=== PATIENT | female | born 1970 | race Caucasian/White ===

== ENCOUNTER 2022-08-28 10:01 | Observation (INO) | payer BC ==
[2022-08-25 15:51] LABS: BASOPHILS % 0.4 % (0.0-1.0); EOSINOPHILS # (AUTO) 0.1 (0.0-0.4); EOSINOPHILS % 1.3 % (0.0-6.0); HEMATOCRIT 40.4 % (34.2-44.1); HEMOGLOBIN 12.4 g/dL (12.0-16.0); LYMPHOCYTES # (AUTO) 2.7 (1.0-3.2); LYMPHOCYTES % 28.2 % (18.0-39.1); MEAN CORPUSCULAR HGB CONC 30.7 g/dL (31-35); MEAN CORPUSCULAR VOLUME 94.4 fL (81-99); MONOCYTES # (AUTO) 0.6 (0.2-0.8); MONOCYTES % 6.4 % (4.4-11.3); NEUTROPHILS % 63.2 % (38.7-80.0); PLATELET COUNT 354 x10e3/uL (140-360); RED BLOOD COUNT 4.28 x10e6/uL (3.6-5.1)
[2022-08-25 15:57] LABS: COLOR,URINE YELLOW (YELLOW)
[2022-08-25 15:58] LABS: CLARITY,URINE SL CLOUDY (CLEAR); KETONES,URINE NEGATIVE (NEGATIVE); LEUKOCYTE ESTERASE ,URINE TRACE (NEGATIVE); NITRITE,URINE POSITIVE (NEGATIVE); PROTEIN,URINE DIPSTICK NEGATIVE (NEGATIVE); URINE UROBILINOGEN 1 mg/dL (0.2 - 1)
[~2022-08-28] VITALS: Ht 157.5 cm; Wt 72.1 kg
[~2022-08-28 10:01] MED LIST: LEVOTHYROXINE50 MCG PO
[2022-08-28] MEDS ORDERED: BUPIVACAINE 0.25% 30ML SDV ONE (12:07)
[2022-08-28] MEDS ORDERED: LIDOCAINE HCL/EPINEPHRINE/PF 10 ML VIAL ONE (12:08)
[2022-08-28] MEDS ORDERED: FENTANYL CITRATE/PF 100MCG/2 ML INJ ONE (13:14)
[2022-08-28] MEDS ORDERED: MIDAZOLAM HCL 2 MG/2 ML VIAL ONE (13:14)
[2022-08-28] MEDS ORDERED: ROCURONIUM BROMIDE 10 MG/ML 5ML VIAL IV ONE (14:10)
[2022-08-28] MEDS ORDERED: GLYCOPYRROLATE INJ 0.2 MG/ML VIAL ONE (14:10)
[2022-08-28] MEDS ORDERED: KETOROLAC TROMETHAMINE 30 MG/ML VIAL ONE (14:10)
[2022-08-28] MEDS ORDERED: LIDOCAINE HCL 2% LOCAL INJ 5 ML SDV VIAL INJ ONE (14:10)
[2022-08-28] MEDS ORDERED: SEVOFLURANE INHAL SOLN 250 ML PEN BTL ONE (14:10)
[2022-08-28] MEDS ORDERED: ONDANSETRON HCL INJ 2MG/ML 2ML 2 MG/ML VIAL ONE (14:10)
[2022-08-28] MEDS ORDERED: DEXAMETHASONE SOD PHOS INJ 4 MG/ML SDV ONE (14:10)
[2022-08-28] MEDS ORDERED: PROPOFOL IV EMULSION 10 MG/ML 20 ML VIAL ONE (14:10)
[2022-08-28] MEDS ORDERED: ACETAMINOPHEN 325 MG TAB PO PRN (15:00)
[2022-08-28] MEDS ORDERED: BISACODYL 10 MG SUPP PR PRN (15:00)
[2022-08-28] MEDS ORDERED: Morphine 2mg Syringe 2 MG/ML SYR IV PRN (15:00)
[2022-08-28] MEDS ORDERED: DIPHENHYDRAMINE HCL 25 MG CAP PO PRN (15:00)
[2022-08-28] MEDS ORDERED: DOCUSATE SODIUM 100 MG CAP PO PRN (15:00)
[2022-08-28] MEDS: LACTATED RINGER'S 1,000 ML IV SCH ×2 (16:32→22:54)
[2022-08-28] MEDS ORDERED: ONDANSETRON HCL INJ 2MG/ML 2ML 2 MG/ML VIAL IV PRN (17:30)
[2022-08-28] MEDS: KETOROLAC TROMETHAMINE 30 MG/ML VIAL IV SCH (17:58)
[2022-08-28] MEDS: SIMETHICONE 80 MG CHEW PO SCH ×2 (18:05→20:33)
[2022-08-28 18:10] VITALS: BP 117/79
[2022-08-28 18:13] VITALS: BP 117/79
[2022-08-28 20:00] VITALS: BP 117/79
[2022-08-29 05:36] LABS: BASOPHILS % 0.1 % (0.0-1.0); EOSINOPHILS % 0.1 % (0.0-6.0); HEMATOCRIT 33.7 % (34.2-44.1); HEMOGLOBIN 10.5 g/dL (12.0-16.0); LYMPHOCYTES # (AUTO) 2.1 (1.0-3.2); LYMPHOCYTES % 14.5 % (18.0-39.1); MEAN CORPUSCULAR HEMOGLOBIN 28.9 pg (28-32); MEAN CORPUSCULAR HGB CONC 31.2 g/dL (31-35); MEAN CORPUSCULAR VOLUME 92.8 fL (81-99); MONOCYTES # (AUTO) 0.7 (0.2-0.8); MONOCYTES % 5.1 % (4.4-11.3); NEUTROPHILS # (AUTO) 11.5 (2.1-6.9); NEUTROPHILS % 79.8 % (38.7-80.0); PLATELET COUNT 283 x10e3/uL (140-360); RED BLOOD COUNT 3.63 x10e6/uL (3.6-5.1); RED CELL DISTRIBUTION WIDTH 13.2 % (11.7-14.4)
[2022-08-29] MEDS: KETOROLAC TROMETHAMINE 30 MG/ML VIAL IV SCH ×3 (05:43→05:47)
[2022-08-29] MEDS: LACTATED RINGER'S 1,000 ML IV SCH (05:43)
[2022-08-29 08:32] VITALS: BP 128/74
[2022-08-29] MEDS: SIMETHICONE 80 MG CHEW PO SCH (09:00)
[2022-08-29 11:24] VITALS: BP 128/74
[2022-08-29 12:18] VITALS: BP 135/78
== END 2022-08-29 12:05 | disposition home or self-care (01) ==
LOC: OR 10:01 → PACU V 14:50 → MED/SURG 16:32
PROVIDERS: ADMIT Obstetrics & Gynecology; ATTEND Obstetrics & Gynecology
DX: N95.0 Postmenopausal bleeding (principal); D25.9 Leiomyoma of uterus, unspecified; N80.03 Adenomyosis of the uterus; N72 Inflammatory disease of cervix uteri; N88.8 Other specified noninflammatory disorders of cervix uteri; Z01.810 Encounter for preprocedural cardiovascular examination; Z01.812 Encounter for preprocedural laboratory examination; Z20.822 Contact with and (suspected) exposure to COVID-19
CPT/HCPCS: 0223U; 36415 ×2; 58571; 81003; 84702; 85025 ×2; 86850; 86900; 88307; 93005; 94799 ×2; C1713; G0378 ×2; J0690 ×2; J1100; J1885; J2001; J2250; J2405; J2704; J3010; J7050 ×2; J7121; J2270